=== PATIENT | male | born 1930 | race Caucasian/White ===

== ENCOUNTER 2017-02-02 09:42 | Day surgery (SDC) | payer OTHER ==
[~2017-02-02] VITALS: Ht 182.9 cm; Wt 98.1 kg
[2017-02-02] VITALS (9 sets, daily range): BP systolic 108–134; BP diastolic 56–71
[~2017-02-02 09:42] MED LIST: ASPIRIN EC LOW81 MG PO; FUROSEMIDE20 MG PO; IRON SUPPLEMEN325 MG PO; POTASSIUM CHLO10 ME2 PO; PRAVASTATIN SOD20 MG PO; SUPER CALCIUM600 MG PO; VITAMIN B-1000 MCG/M IM; VITAMIN B-12500 MC1 SL; VITAMIN D-31000 UNIT PO
--- NOTE | 2017-02-02 11:09 | NUR ---
PREOP INSTRUCTIONS GIVEN TO PATIENT. QUESTIONS ANSWERED. PATIENT VERBALIZES UNDERSTANDING. CONSENT CONFIRMED. PREOP MEDICATIONS GIVEN. SCDs ON. PATIENT RESTING COMFORTABLY. DAUGHTER IN ROOM. K
--- NOTE | 2017-02-02 14:12 | NUR ---
PATIENT ARRIVED TO PACU AT 1407. SPONT RESP. AWAKE AND AWARE. VITALS STABLE. ABDOMEN SOFT, WITH CLEAN, DRY DRESSINGS IN PLACE. ABDOMINAL BINDER APPLIED. DENIES PAIN OR NAUSEA AT THIS TIME. WILL CONTINUE TO MONITOR.
--- NOTE | 2017-02-02 14:22 | Operative Report ---
Operative Report Date of Surgery: 02/02/17 Preoperate Diagnosis: recurrent incisional hernia Postoperative Diagnosis: recurrent incisional hernias, intra-abdominal abdominal wall adhe Surgeon: Andry Kramer MD Head Chopper Surgeon: none Procedure Performed: Diagnostic laparoscopy, lysis of anterior abdominal wall adhesions, open laparotomy with repair of multiple midline incisional and umbilical hernias Anesthesia: Gen. endotracheal Indications: 86 year-old male November 2013 and underwent right hemicolectomy, cholecystectomy, and appendectomy through a right subcostal Poly incision [facility]. Developed small bowel obstruction and underwent a laparotomy February 2014 for reduction of internal hernia at [facility]. In January of 2015 underwent incisional hernia repair with closure of 5 cm fascial defect with mesh. Has developed increased abdominal bulging in the mid abdomen. The examination he is noted to have a reducible recurrent incisional hernia. Possibly other smaller hernias in the midline and umbilicus. FINDINGS: Anterior abdominal wall adhesions of small bowel to previously placed intra-abdominal mesh. Multiple anterior abdominal wall incisional hernias in the midline and small umbilical hernia. Surgical Technique: Patient was brought to the operating room. The patient was placed in the dorsal supine position. Patient underwent general endotracheal anesthesia by the anesthesiology department. After proper anesthesia had taken effect, the patient's abdomen was prepped with Betadine and draped in a sterile fashion. A small 3 cm incision made in the left upper quadrant just below the ribs and using blunt dissection, the peritoneal cavity was entered. A blunt trocar was introduced into the abdominal cavity. A pneumoperitoneum was obtained with CO2 insufflation to 14-15 mmHg pressure. Once this pressure was reached the trocar was removed and the sleeve remained in place through which a laparoscopic video camera was introduced into the abdominal cavity. The aforementioned findings noted. A separate 10 mm trocar was placed in the right lower quadrant. A separate 5 mm trocar was placed in the right mid abdomen. Adhesions were taken down very carefully using a combination of hydodissection and sharp dissection. After tediously peeling off the adhesions to the previously placed intra- abdominal V-Patch mesh, I was able to identify 3 separate hernias in the upper midline. We were able to identify a small umbilical hernia after further taking down adhesions to the undersurface of the midline scar. At this time the pneumoperitoneum was released. The previous midline scar was infiltrated using local anesthetic. An incision was carried down through the scar into the peritoneal cavity. The fascial edges were identified surrounding the above-mentioned hernias. The umbilical hernia was palpable from within the abdominal cavity. The midline fascia was approximated using running 0 Maxon, thus repairing the hernias and closing the midline as a single unit. The subcutaneous tissue was irrigated copiously with warm normal saline and antibiotic solution. The skin approximated using 4-0 sub dermal continuous running Polysorb suture. All trocar sites approximated using 4-0 sub dermal Polysorb interrupted suture. Steri-Strips were placed over each site. Sterile pressure dressings were placed over each site. The patient was placed in abdominal binder. Patient was extubated and transferred to the recovery room in stable condition. There were no intraoperative or anesthetic complications. CONDITION: Stable to the postoperative anesthesia recovery room COMPLICATIONS: None ESTIMATED BLOOD LOSS: Minimal FLUIDS:: 800 cc lactate Ringers DRAINS/PACKING: None SPECIMEN: None
--- NOTE | 2017-02-02 15:04 | NUR ---
1450- pt arrived to acute care room 211 from post op. he is alert, oriented. denies pain. pt reports 0 pain at this time. 4 lap sites and midline incision with abd binder in place. pt denies nausea. oriented to unit. call light in reach.
--- NOTE | 2017-02-02 16:48 | NUR ---
PT STATED FEELING LIGHT HEADED BUT NO PAIN. BLOOD GLUCOSE 123. BEGAN TO VOMIT, PROVIDED ZOFRAN 4MG. GOWN CHANGED. WCTM.
--- NOTE | 2017-02-02 17:32 | NUR ---
NO NAUSEA, TOLERATING CLEAR DINNER. DRESSING CDI. DR SHETH STOPPED BY AND STATED THAT PT WAS GIVEN LARGE AMOUNT OF FLUID AND TO CHANGE DRESSING ON ABD IF WET BUT TO BE SURE TO PUT KERLIX TO PROVIDE PRESSURE. WILL REPORT TO NEXT RN.
--- NOTE | 2017-02-02 21:30 | NUR ---
ENCOURAGED SIPS OF WATER, GET UP TO ATTEMPT URINATION. NO PAIN OR NAUSEA. DRESSING CDI. VSS. CALL LIGHT ON BED WITH PT. MARLEN.
[2017-02-03 02:55] VITALS: BP 127/58
--- NOTE | 2017-02-03 06:25 | NUR ---
PT SLEPT BETWEEN CARE, WALKED Q1 HOUR. VSS ON ROOM AIR, NO COMPLAINTS OF PAIN OR N/V. COMPLIANT WITH CARE. AT 0200, PT HAD STILL NOT VOIDED SINCE SURGERY, BLADDER SCAN AT 2300 SHOWED 450+. PT DRINKING WELL, FLUIDS RUNNING AT 125 ML/HR. NOTIFIED AND NEW ORDERS RECEIVED FOR LASIX AND LR BOLUS. BY 0320 PT HAD ALMOST 300ML OUTPUT. DURING ASSESSMENT, IT WAS NOTED THAT THE BOTTOM KERLEX WAS MODERATELY SATURATED, BY MID-SHIFT IT WAS COMPLETELY SATURATED IN SANGUINOUS DRAINAGE, KERLEX THEN CHANGED AND REAPPLIED. ABDOMINAL BINDER REMAINED ON THROUGH THE NIGHT.
--- NOTE | 2017-02-03 06:34 | Progress Note ---
Subjective General 86 year-old male postop day 1 laparoscopic lysis of adhesions and open repair recurrent incisional hernias. Comfortable this morning. Tolerated by mouth last night. He required fluid boluses and Lasix to void. Patient states he is urinating without difficulty now. No shortness of breath or chest pain. Minimal abnormal discomfort. Nurses required to change dressings and night. Physical Exam Vital Signs / I&Os Vital Signs Date Time Temp Pulse Resp B/P Pulse O2 O2 Flow FiO2 I&O 02/02 0800 02/02 1600 02/03 0000 Intake Total 1805 1510 Output Total 1030 25 Balance 775 1485 General Appearance Alert, Oriented X3, Cooperative, No acute distress Lungs Clear to auscultation Cardiovascular Regular rate and rhythm Abdomen Normal bowel sounds, dressings changed. No evidence of cellulitis. Extremities No cyanosis, No edema Neurological No lateralizing signs Psych/Mental Status Mood normal LAB Results Laboratory Tests 02/02 02/03 1024 0530 Chemistry Plasma Sodium (136 - 145 mmol/L) 140 Plasma Potassium (3.5 - 5.1 mmol/L) 4.4 Plasma Chloride (98 - 107 mmol/L) 105 CO2 (Enzymatic) (21 - 32 mmol/L) 26 BUN (7 - 18 mg/dL) 24 Creatinine (0.6 - 1.3 mg/dL) 1.3 Est GFR ( Amer) (mL/min) >60 Est GFR (Non-Af Amer) (mL/min) 55.90 Glucose (70 - 110 mg/dL) 111 Plasma Calcium (8.5 - 10.1 mg/dL) 8.8 Coagulation INR (0.8 - 1.2) 1.0 Hematology WBC (4.5 - 11.5 K/uL) 9.0 11.7 RBC (4.50 - 5.90 M/uL) 4.40 3.88 Hgb (13.5 - 17.5 gm/dL) 13.6 12.2 Hct (41.0 - 53.0 %) 40.8 35.6 MCV (80 - 100 fL) 93 92 MCH (26 - 34 pg) 31 31 RDW (11.6 - 14.8 %) 14.0 14.1 Neut % (Auto) (50 - 75 %) 72.7 82.0 Lymph % (Auto) (25 - 40 %) 19.6 10.7 [place] % (Auto) (3 - 14 %) 5.6 6.1 Eos % (Auto) (0 - 4 %) 1.6 1.0 Baso % (Auto) (0 - 2 %) 0.5 0.2 Plt Count, EDTA (150 - 400 K/uL) 175 168 PUBS MCHC (31 - 37 g/dL) 33 34 Assessment and Plan Problem List 1. STATUS POST LAPAROSCOPIC LYSIS OF ADHESIONS/OPEN RECURRENT INCISIONAL HERNIA REPAIR Plan Stable postop. We'll DC home. We'll care instructions given. Patient will follow up later this week. Patient will resume home medications. Patient will be discharged on Vicodin 5/325 1 tablet every 4- 6 hours when necessary pain
[2017-02-03] MEDS ORDERED: COLACE100 MG PO (06:36)
[2017-02-03] MEDS ORDERED: VICODIN EQUIVAL1 TAB PO (06:37)
--- NOTE | 2017-02-03 06:38 | Provider's Discharge Care Plan ---
Problem, Goal, Plan Problem List 1. STATUS POST LAPAROSCOPIC LYSIS OF ADHESIONS/OPEN RECURRENT INCISIONAL HERNIA REPAIR Goals: Improve disease control, Therapeutic intervention Instructions: Follow up as directed, Take meds as directed, abdominal binder 06/04
[2017-02-03 07:15] VITALS: BP 114/58
== END 2017-02-03 10:50 | disposition home or self-care (01) ==
LOC: OR SRH 09:42 → SCU SRH 09:43 → OR SRH 10:30 → ACUTE2 SRH 15:09 → OR SRH 02-03 10:50
PROVIDERS: Specialist
PROC: 0WQF0ZZ Repair Abdominal Wall, Open Approach (ICD-10-PCS; principal; 2017-02-02 11:45)
PROC: 0DN84ZZ Release Small Intestine, Percutaneous Endoscopic Approach (ICD-10-PCS; principal; 2017-02-02 11:45)
DX: K43.2 Incisional hernia without obstruction or gangrene (principal); K66.0 Peritoneal adhesions (postprocedural) (postinfection); I10 Essential (primary) hypertension; Z90.49 Acquired absence of other specified parts of digestive tract; Z85.038 Personal history of other malignant neoplasm of large intestine